=== PATIENT | male | born 1970 | race Caucasian/White ===

== ENCOUNTER 2017-11-12 21:59 | Emergency (ER) | payer BC, OTHER, SELFPAY ==
[2017-11-12 22:08] VITALS: BP 140/97
== END 2017-11-12 23:42 | disposition home or self-care (01) ==
LOC: ED 23:35
DX: S16.1XXA Strain of muscle, fascia and tendon at neck level, initial encounter (principal); M54.6 Pain in thoracic spine; F17.210 Nicotine dependence, cigarettes, uncomplicated; V49.09XA Driver injured in collision with other motor vehicles in nontraffic accident, initial encounter; Y93.89 Activity, other specified; Y92.89 Other specified places as the place of occurrence of the external cause; Y99.8 Other external cause status
CPT/HCPCS: 72050; 99284

== ENCOUNTER 2017-11-19 21:42 | Emergency (ER) | payer OTHER ==
[~2017-11-19] VITALS: Ht 180.3 cm; Wt 103.2 kg
[2017-11-19 21:44] VITALS: BP 151/84
[2017-11-19] MEDS ORDERED: KETOROLAC 30 MG/1 ML IM ONE (22:00)
== END 2017-11-19 22:37 | disposition home or self-care (01) ==
LOC: ED 22:36
DX: S16.1XXA Strain of muscle, fascia and tendon at neck level, initial encounter (principal); S29.011A Strain of muscle and tendon of front wall of thorax, initial encounter; V49.49XA Driver injured in collision with other motor vehicles in traffic accident, initial encounter; Y93.89 Activity, other specified; Y92.410 Unspecified street and highway as the place of occurrence of the external cause; Y99.8 Other external cause status
CPT/HCPCS: 73000; 96372; 99284; J1885